=== PATIENT | male | born 1945 | race Caucasian/White ===

== ENCOUNTER 2016-12-08 09:29 | Day surgery (SDC) | payer MEDICARE, MEDICAID ==
[2016-12-08 10:03] VITALS: BMI 21.7
[2016-12-08 13:21] VITALS: RESP 20; TEMP 97; O2SAT 3
[2016-12-08 13:24] VITALS: BP 140/68; PULSE 66
== END 2016-12-08 14:30 | disposition home or self-care (01) ==
LOC: C.SDS 09:29
PROVIDERS: ATTEND Radiology Vascular & Interventional Radiology
DX: Z43.1 Encounter for attention to gastrostomy (principal); R13.10 Dysphagia, unspecified
CPT/HCPCS: 49450; 82948; C1769; J3010; Q9967